=== PATIENT | female | born 1935 | race Caucasian/White ===

== ENCOUNTER → 2017-06-28 14:13 | Outpatient (CLI) | payer MEDICARE, BC, SELFPAY ==
--- NOTE | 2017-06-28 14:20 | XR_ITS ---
XR hip LT 2-3V w/pelvis HISTORY: ITS.REASON: LT HIP PAIN ORDERING PHYSICIAN: Edyd Ramirez MD PATIENT AGE: 82 years COMPARISON: None FINDINGS: No fracture or dislocation is evident. There are minimal osteoarthritic changes of the hip and there is diffuse vascular calcification. A metallic safety pin is present in the perineal region and reported to be in the patient's undergarments. IMPRESSION: Mild osteoarthritic change, no acute finding
== END ==
PROVIDERS: PCP Family Medicine; Visit Provider Family Medicine
DX: M25.552 Pain in left hip (principal)
CPT/HCPCS: 73502

== ENCOUNTER → 2017-09-18 08:23 | Outpatient (CLI) | payer MEDICARE, BC, SELFPAY ==
[2017-09-18 08:45] LABS: Basophils % 0.4 % (0.1-2.0); Eosinophils # 0.5 K/mm3 (0.0-0.4); Eosinophils % 9.4 % (0.1-12.0); Hematocrit 32.4 % (37.0-47.0); Hemoglobin 10.1 g/dL (12.2-16.2); Lymphocytes # 0.8 K/mm3 (0.7-4.5); Lymphocytes % 14.4 K/mm3 (10-50); Mean Corpuscular HGB Conc 31.3 g/dL (31.8-35.4); Mean Corpuscular Hemoglobin 30.1 pg (27.0-31.2); Mean Corpuscular Volume 96.4 fl (81-99); Mean Platelet Volume 8.7 fl (7.4-10.4); Monocytes # 0.4 K/mm3 (0.1-1.0); Monocytes % 6.2 % (1.7-9.3); Neutrophils % 69.7 % (37.0-80.0); Platelet Count 126 K/mm3 (142-424); Red Blood Count 3.36 M/mm3 (4.20-5.40); Red Cell Distribution Width 14.3 % (11.5-17.5); White Blood Count 5.8 K/mm3 (4.8-10.8)
[2017-09-18 12:45] LABS: Albumin Level 3.6 gm/dL (3.4-5.0); Anion Gap 14.2 mEq/L (5-15); Blood Urea Nitrogen 42 mg/dL (7-18); Calcium 9.4 mg/dL (8.5-10.1); Carbon Dioxide 27 mmol/L (21.0-32.0); Chloride 108 mmol/L (98-107); Creatinine,Serum 1.95 mg/dL (0.55-1.02); Estimated Glomerular Filt Rate 25 ml/min (>60); GFR (African American) 30 ML/MIN (>60); Glucose 181 mg/dL (74-106); Phosphorous 3.6 mg/dL (2.4-4.9); Potassium 5.2 mmoL/L (3.5-5.1); Sodium 144 mmol/L (136-145)
== END ==
PROVIDERS: Visit Provider Internal Medicine Nephrology
DX: N18.4 Chronic kidney disease, stage 4 (severe) (principal)
CPT/HCPCS: 36415; 80069; 85025

== ENCOUNTER → 2017-09-25 10:36 | Outpatient (POV) | payer MEDICARE, BC, SELFPAY | PROVIDERS: PCP Family Medicine; Visit Provider Internal Medicine Nephrology | DX: Z00.00 Encounter for general adult medical examination without abnormal findings (principal) ==

== ENCOUNTER → 2017-10-26 10:53 | Outpatient (CLI) | payer MEDICARE, BC, SELFPAY ==
--- NOTE | 2017-10-26 11:08 | MR_ITS ---
MR head/brain wo/w con Ordering Physician: Eddy Ramirez MD Patient Age: 82 years: Female HISTORY: ITS.REASON: FOCAL AND PARTIAL SEIZURES Syncope 2 weeks ago. Slurred speech for 2 minutes or so. Headache subsequent cannot remember much of the few minutes after syncope. No gadolinium contrast was utilized due to GFR = 26 as reviewing the precontrast scan with its lack of mass lesion or other findings to raise concern regarding additional underlying that would requiring contrast TECHNIQUE: MR brain without contrast Noncontrast Multiplanar FLAIR, T1, T2 weighted images along with axial diffusion/ADC imaging performed on 1.5 T. Siemens, MRI... COMPARISON :CT head [id number] FINDINGS . Cerebral atrophy. Age-appropriate to actually somewhat modest for age No territorial infarct evident no mass lesion or mass effect No acute infarct nor ischemia on diffusion images There are scattered small high signal foci in the deep white matter of the cerebral hemispheres bilaterally. Subcortical and periventricular. This reflects chronic small vessel deep white matter ischemic changes. Numerous small Virchow-Dario's evident perivascular spaces seen throughout the basal ganglia and right thalamus. Nonspecific but can be reflection of underlying hypertension a small signal focus at right thalamus shows no gliosis and thus I tend to favor a prominent perivascular space rather than a small old lacunar 2.5 mm size. Posterior fossa appears normal. IACs appear symmetric and satisfactory. Survey of [place] of [place] on these noncontrast studies images are unremarkable. Normal flow void at the dural venous sinuses The ventricles appear normal. The cranial cervical junction appears adequate and satisfactory. The sella is normal. Upper C-spine with developing cervical spondylosis and scant disc bulge C3/4 and C4/5 Minor mucosal thickening at the ethmoid air cells and mild mucosal thickening floor of left maxillary sinus more than right. Otherwise paranasal sinuses clear with no fluid level or prominent findings.. Mastoids,. Well-developed with minimal mastoid effusion towards right mastoid tip. IMPRESSION 1. No recent infarct nor ischemia evident . No territorial infarct. No mass lesion 2. 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 3. Mild cerebral atrophy. Age-appropriate 4. Other minor observations in text.: Minor right mastoid effusion, right mastoid tip.. Minor mucosal thickening inferior maxillary sinuses and ethmoids air cells. No fluid levels
[2017-10-26 11:20] LABS: Blood Urea Nitrogen 41 mg/dL (7-18); Creatinine,Serum 1.85 mg/dL (0.55-1.02); Estimated Glomerular Filt Rate 26 ml/min (>60); GFR (African American) 32 ML/MIN (>60)
== END ==
PROVIDERS: PCP Family Medicine; Visit Provider Family Medicine
DX: G40.109 Localization-related (focal) (partial) symptomatic epilepsy and epileptic syndromes with simple partial seizures, not intractable, without status epilepticus (principal)
CPT/HCPCS: 36415; 70551; 82565; 84520

== ENCOUNTER → 2017-11-06 08:58 | Outpatient (POV) | payer MEDICARE, BC, SELFPAY | PROVIDERS: PCP Family Medicine; Visit Provider Specialist | DX: G40.109 Localization-related (focal) (partial) symptomatic epilepsy and epileptic syndromes with simple partial seizures, not intractable, without status epilepticus (principal) | CPT/HCPCS: 95819 ==